=== PATIENT | female | born 1985 | race African-American/Black ===

== ENCOUNTER 2018-06-29 12:56 | Emergency (ER) | payer MEDICAID, OTHER ==
[~2018-06-29] VITALS: Ht 170.2 cm; Wt 100.0 kg
[2018-06-29 13:15] VITALS: BP 145/86
== END 2018-06-29 13:53 | disposition home or self-care (01) ==
LOC: ER 13:44
DX: K02.9 Dental caries, unspecified (principal); F17.200 Nicotine dependence, unspecified, uncomplicated
CPT/HCPCS: 99283

== ENCOUNTER 2020-06-22 11:29 | Inpatient (IN) | payer MEDICAID ==
[~2020-06-22] VITALS: Ht 170.2 cm; Wt 101.2 kg
[2020-06-22] MEDS ORDERED: SODIUM CHLORIDE 0.9% 1,000 ML IV ONE (11:58)
[2020-06-22 12:31] LABS: BASOPHILS % 0.8 % (0.0-2.0); EOSINOPHILS % 0.3 % (0.0-5.0); HEMATOCRIT. 32.8 % (36.0-48.0); HEMOGLOBIN. 10.1 g/dL (12.0-16.0); LYMPHOCYTES % 18.8 % (20.0-50.0); MEAN CORPUSCULAR HEMOGLOBIN 20.6 pg (28.0-32.0); MEAN CORPUSCULAR VOLUME 67.1 fL (81.0-99.0); MEAN PLATELET VOLUME 8.6 fl (7.4-10.4); MONOCYTES % 6.7 % (2.0-8.0); NEUTROPHILS % 73.4 % (40.0-76.0); PLATELET 250 x1000/uL (130-400); RED BLOOD CELL COUNT 4.89 mill/uL (4.2-5.4); RED CELL DISTRIBUTION WIDTH 20.6 % (11.6-14.6)
[2020-06-22 12:36] LABS: CHLORIDE 102 mEq/L (98-107)
[2020-06-22 12:40] LABS: ETHANOL BLOOD < 10 mg/dL
[2020-06-22] MEDS ORDERED: MORPHINE SULFATE 4 MG/ML CPJ (NOT FOR IM USE) IV STA (12:41)
[2020-06-22] MEDS ORDERED: FAMOTIDINE 20MG/2ML VIAL IV STA (12:41)
[2020-06-22] MEDS ORDERED: LORAZEPAM 2MG/ML CPJ IV ONE (12:45)
[2020-06-22 12:53] LABS: PROTHROMBIN TIME 10.8 sec (9.6-11.0)
[2020-06-22 12:55] LABS: CLARITY URINE TURBID (CLEAR); COLOR URINE ORANGE (YELLOW); KETONES URINE 1+ (NEGATIVE); LEUKOCYTE ESTERASE URINE 1+ (NEGATIVE); NITRITE URINE NEGATIVE (NEGATIVE); OCCULT BLOOD URINE NEGATIVE (NEGATIVE); PROTEIN URINE 2+ (NEGATIVE); SPECIFIC GRAVITY URINE 1.029 (1.005-1.030)
[2020-06-22 13:03] LABS: HCG SCREEN NEGATIVE
[2020-06-22 13:04] LABS: PLATELET ESTIMATE NORMAL
[2020-06-22 13:25] LABS: *AMPHETAMINES SCREEN URINE NEGATIVE (NEGATIVE); *BARBITURATES SCREEN URINE NEGATIVE (NEGATIVE); *BENZODIAZEPINES SCREEN URINE NEGATIVE (NEGATIVE); *COCAINE SCREEN URINE NEGATIVE (NEGATIVE); METHADONE URINE SCREEN NEGATIVE (NEGATIVE)
[2020-06-22 13:26] LABS: PHENCYCLIDINE URINE SCREEN NEGATIVE (NEGATIVE)
[2020-06-22 13:27] LABS: CANNABINOID URINE SCREEN PRESUMTIVE POSITIVE (NEGATIVE); OPIATES URINE SCREEN PRESUMTIVE POSITIVE (NEGATIVE)
[2020-06-22] MEDS ORDERED: CEFTRIAXONE 1 G PREMIX 50 ML IV ONE (13:45)
[2020-06-22 16:21] VITALS: BP 145/99
[2020-06-22] MEDS ORDERED: MAGNESIUM/ALUMINUM HYDROXIDE/SIMETHICONE 30ML UDC PO PRN (18:00)
[2020-06-22] MEDS ORDERED: NA PHOS,M-B/NA PHOS,DI-BA ENEMA 118ML PR PRN (18:00)
[2020-06-22] MEDS ORDERED: DOCUSATE SODIUM 100MG CAPSULE PO PRN (18:00)
[2020-06-22] MEDS ORDERED: ACETAMINOPHEN 325MG TABLET PO PRN (18:00)
[2020-06-22] MEDS ORDERED: CLONIDINE 0.1MG TABLET PO PRN (18:00)
[2020-06-22] MEDS ORDERED: DIPHENHYDRAMINE 50MG/ML VIAL IV PRN (18:00)
[2020-06-22] MEDS ORDERED: IPRATROPIUM/ALBUTEROL 0.5-3(2.5)MG/3ML NEB HHN PRN (18:00)
[2020-06-22] MEDS ORDERED: GUAIFENESIN 200MG/10ML SUGAR FREE UDC PO PRN (18:00)
[2020-06-22] MEDS ORDERED: LORAZEPAM 2MG/ML CPJ IV PRN (18:00)
[2020-06-22 20:00] VITALS: BP 137/85
[2020-06-22] MEDS: HYDROCODONE/ACETAMINOPHEN 10/325MG TABLET PO PRN (20:24)
[2020-06-22] MEDS: PANTOPRAZOLE SODIUM 40 MG/VIAL IV SCH (20:27)
[2020-06-22] MEDS: ONDANSETRON HCL 4MG/2ML INJ IV PRN (20:38)
[2020-06-22] MEDS: SODIUM CHLORIDE 0.45% 1,000 ML IV SCH (20:58)
[2020-06-22] MEDS ORDERED: ENOXAPARIN 40MG/0.4ML SYR SUBCUT SCH (21:00)
[2020-06-22] MEDS: SODIUM CHLORIDE 0.9% INJ 3ML FLUSH IVF SCH (21:18)
[2020-06-23] VITALS: BP 141/85
[2020-06-23] MEDS: HYDROCODONE/ACETAMINOPHEN 10/325MG TABLET PO PRN ×2 (03:52→08:35)
[2020-06-23] MEDS: ONDANSETRON HCL 4MG/2ML INJ IV PRN (03:52)
[2020-06-23] MEDS: SODIUM CHLORIDE 0.45% 1,000 ML IV SCH ×2 (03:58→08:44)
[2020-06-23 04:00] VITALS: BP 114/69
[2020-06-23] MEDS: SODIUM CHLORIDE 0.9% INJ 3ML FLUSH IVF SCH ×2 (05:36→13:05)
[2020-06-23 08:00] VITALS: BP 130/83
[2020-06-23] MEDS: PANTOPRAZOLE SODIUM 40 MG/VIAL IV SCH (08:34)
[2020-06-23] MEDS ORDERED: CEFTRIAXONE 1,000 MG in DEXTROSE 5% WATER 50 ML IV SCH (09:00)
[2020-06-23 12:00] VITALS: BP 107/63
[2020-06-23 13:56] VITALS: BP 107/63
== END 2020-06-23 14:19 | disposition home or self-care (01) | DRG 282 ==
LOC: ER 11:29 → 6EST 13:47 → ENRESERV 15:31 → ER 15:49
PROVIDERS: ADMIT Internal Medicine; ATTEND Internal Medicine
DX: K85.90 Acute pancreatitis without necrosis or infection, unspecified (principal); K42.9 Umbilical hernia without obstruction or gangrene; D64.9 Anemia, unspecified; E66.9 Obesity, unspecified; F12.90 Cannabis use, unspecified, uncomplicated; N39.0 Urinary tract infection, site not specified; R65.10 Systemic inflammatory response syndrome (SIRS) of non-infectious origin without acute organ dysfunction; Z68.34 Body mass index [BMI] 34.0-34.9, adult; Z79.899 Other long term (current) drug therapy
CPT/HCPCS: 36415; 71045; 74176; 80053; 80305; 80320; 81003; 84484; 84703; 85025; 93005; 99285; C9113; J0696; J1650; J2060; J2270; J2405; J3490; J7030; J7060; G0480

== ENCOUNTER 2020-09-22 11:14 | Emergency (ER) | payer MEDICAID ==
[~2020-09-22] VITALS: Ht 170.2 cm; Wt 102.0 kg
[2020-09-22] MEDS ORDERED: MORPHINE SULFATE 4 MG/ML CPJ (NOT FOR IM USE) IV STA (11:31)
[2020-09-22] MEDS ORDERED: ONDANSETRON HCL 4MG/2ML INJ IV STA (11:31)
[2020-09-22 12:31] LABS: BASOPHILS % 0.6 % (0.0-2.0); EOSINOPHILS % 0.8 % (0.0-5.0); HEMATOCRIT. 28.9 % (36.0-48.0); HEMOGLOBIN. 8.7 g/dL (12.0-16.0); LYMPHOCYTES % 13.7 % (20.0-50.0); MEAN CORPUSCULAR HEMOGLOBIN 20.5 pg (28.0-32.0); MEAN CORPUSCULAR VOLUME 68.2 fL (81.0-99.0); MEAN PLATELET VOLUME 8.6 fl (7.4-10.4); MONOCYTES % 5.3 % (2.0-8.0); NEUTROPHILS % 79.6 % (40.0-76.0); PLATELET 204 x1000/uL (130-400); RED BLOOD CELL COUNT 4.23 mill/uL (4.2-5.4); RED CELL DISTRIBUTION WIDTH 18.6 % (11.6-14.6)
[2020-09-22 12:36] LABS: CHLORIDE 106 mEq/L (98-107)
[2020-09-22 12:42] LABS: CLARITY URINE CLEAR (CLEAR); COLOR URINE YELLOW (YELLOW); KETONES URINE NEGATIVE (NEGATIVE); LEUKOCYTE ESTERASE URINE NEGATIVE (NEGATIVE); NITRITE URINE NEGATIVE (NEGATIVE); OCCULT BLOOD URINE NEGATIVE (NEGATIVE); PROTEIN URINE NEGATIVE (NEGATIVE); SPECIFIC GRAVITY URINE 1.023 (1.005-1.030); UROBILINOGEN URINE 0.2 E.U./dL (0.2-1.0)
[2020-09-22 13:00] LABS: HCG SCREEN NEGATIVE
[2020-09-22 13:03] LABS: PLATELET ESTIMATE NORMAL
[2020-09-22 14:06] VITALS: BP 122/78
== END 2020-09-22 14:06 | disposition home or self-care (01) ==
LOC: ER 11:14
DX: R10.13 Epigastric pain (principal)
CPT/HCPCS: 36415; 76705; 80053; 81003; 81025; 83690; 84703; 85025; 93005; 96374; 96375; 99285; J2270; J2405; Z7610

== ENCOUNTER 2020-09-25 13:08 | Emergency (ER) | payer MEDICAID ==
[~2020-09-25] VITALS: Ht 170.2 cm; Wt 145.0 kg
[2020-09-25] MEDS ORDERED: MAGNESIUM/ALUMINUM HYDROXIDE/SIMETHICONE 30ML UDC PO STA (15:13)
[2020-09-25] MEDS ORDERED: ONDANSETRON 4MG ODT PO STA (15:13)
[2020-09-25] MEDS ORDERED: VISCOUS LIDOCAINE 2% 15 ML UDC PO STA (15:13)
[2020-09-25] MEDS ORDERED: MORPHINE SULFATE 4 MG/ML CPJ (NOT FOR IM USE) IV ONE (15:45)
[2020-09-25 16:22] LABS: CHLORIDE 107 mEq/L (98-107)
[2020-09-25 16:25] LABS: BASOPHILS % 0.6 % (0.0-2.0); EOSINOPHILS % 1.2 % (0.0-5.0); HEMATOCRIT. 29.1 % (36.0-48.0); HEMOGLOBIN. 8.9 g/dL (12.0-16.0); LYMPHOCYTES % 21.6 % (20.0-50.0); MEAN CORPUSCULAR HEMOGLOBIN 20.9 pg (28.0-32.0); MEAN PLATELET VOLUME 8.4 fl (7.4-10.4); MONOCYTES % 7.8 % (2.0-8.0); NEUTROPHILS % 68.8 % (40.0-76.0); PLATELET 218 x1000/uL (130-400); RED BLOOD CELL COUNT 4.28 mill/uL (4.2-5.4); RED CELL DISTRIBUTION WIDTH 17.8 % (11.6-14.6)
[2020-09-25 16:28] LABS: PROTHROMBIN TIME 10.8 sec (9.6-11.0)
[2020-09-25 16:46] LABS: PLATELET ESTIMATE NORMAL
[2020-09-25] MEDS ORDERED: HALOPERIDOL LACTATE 5MG/ML VIAL IM ONE ×2 (17:45→20:30)
[2020-09-25 23:22] VITALS: BP 121/74
== END 2020-09-25 23:25 | disposition home or self-care (01) ==
LOC: ER 13:08
DX: F12.10 Cannabis abuse, uncomplicated (principal); R11.2 Nausea with vomiting, unspecified; D64.9 Anemia, unspecified; F17.200 Nicotine dependence, unspecified, uncomplicated
CPT/HCPCS: 36415; 76705; 80053; 81025; 83690; 85025; 85610; 93005; 96372; 99285; J1630; Q0162

== ENCOUNTER 2021-01-09 10:16 | Emergency (ER) | payer MEDICAID ==
[~2021-01-09] VITALS: Ht 170.2 cm; Wt 99.0 kg
[2021-01-09] MEDS ORDERED: ONDANSETRON HCL 4MG/2ML INJ IV STA (11:06)
[2021-01-09] MEDS ORDERED: KETOROLAC 30MG/ML VIAL IV STA (11:06)
[2021-01-09] MEDS ORDERED: SODIUM CHLORIDE 0.9% 1,000 ML IV ONE (11:15)
[2021-01-09 11:37] LABS: BASOPHILS % 0.6 % (0.0-2.0); EOSINOPHILS % 1.4 % (0.0-5.0); HEMOGLOBIN. 8.4 g/dL (12.0-16.0); LYMPHOCYTES % 16.9 % (20.0-50.0); MEAN CORPUSCULAR HEMOGLOBIN 19.9 pg (28.0-32.0); MEAN CORPUSCULAR VOLUME 66.7 fL (81.0-99.0); MEAN PLATELET VOLUME 8.7 fl (7.4-10.4); NEUTROPHILS % 73.1 % (40.0-76.0); PLATELET 226 x1000/uL (130-400); RED CELL DISTRIBUTION WIDTH 18.9 % (11.6-14.6)
[2021-01-09 11:40] LABS: CHLORIDE 108 mEq/L (98-107)
[2021-01-09 11:41] LABS: CLARITY URINE CLEAR (CLEAR); COLOR URINE YELLOW (YELLOW); KETONES URINE NEGATIVE (NEGATIVE); LEUKOCYTE ESTERASE URINE NEGATIVE (NEGATIVE); NITRITE URINE NEGATIVE (NEGATIVE); OCCULT BLOOD URINE 3+ (NEGATIVE); PROTEIN URINE NEGATIVE (NEGATIVE); SPECIFIC GRAVITY URINE 1.008 (1.005-1.030); UROBILINOGEN URINE 0.2 E.U./dL (0.2-1.0)
[2021-01-09 11:44] LABS: ETHANOL BLOOD < 10 mg/dL
[2021-01-09 11:45] LABS: HCG SCREEN NEGATIVE
[2021-01-09 12:13] LABS: *AMPHETAMINES SCREEN URINE NEGATIVE (NEGATIVE); *BARBITURATES SCREEN URINE NEGATIVE (NEGATIVE); *BENZODIAZEPINES SCREEN URINE NEGATIVE (NEGATIVE); *COCAINE SCREEN URINE NEGATIVE (NEGATIVE); METHADONE URINE SCREEN NEGATIVE (NEGATIVE)
[2021-01-09 12:14] LABS: OPIATES URINE SCREEN NEGATIVE (NEGATIVE); PHENCYCLIDINE URINE SCREEN NEGATIVE (NEGATIVE)
[2021-01-09 12:24] LABS: CANNABINOID URINE SCREEN PRESUMTIVE POSITIVE (NEGATIVE)
[2021-01-09 12:33] LABS: PLATELET ESTIMATE NORMAL
[2021-01-09] MEDS ORDERED: MORPHINE SULFATE 4 MG/ML CPJ (NOT FOR IM USE) IV ONE (13:30)
[2021-01-09] MEDS ORDERED: ONDA4TAB5 MT (13:35)
[2021-01-09] MEDS ORDERED: OMEP40CA12 MT (13:36)
[2021-01-09 13:50] VITALS: BP 145/76
== END 2021-01-09 13:50 | disposition home or self-care (01) ==
LOC: ER 10:16
DX: R10.33 Periumbilical pain (principal); D53.9 Nutritional anemia, unspecified; R11.2 Nausea with vomiting, unspecified; R03.0 Elevated blood-pressure reading, without diagnosis of hypertension
CPT/HCPCS: 36415; 74176; 80053; 80305; 80320; 81003; 83690; 84703; 85025; 93005; 96374; 96375; 99285; J1885; J2405; J7030; Z7610; G0480

== ENCOUNTER 2021-03-03 15:26 | Inpatient (IN) | payer MEDICAID ==
[~2021-03-03] VITALS: Ht 170.2 cm; Wt 99.8 kg
[~2021-03-03 15:26] MED LIST: OMEP40CA12 MT; ONDA4TAB5 MT
[2021-03-03 16:12] LABS: BASOPHILS % 0.4 % (0.0-2.0); EOSINOPHILS % 0.2 % (0.0-5.0); HEMATOCRIT. 31.7 % (36.0-48.0); HEMOGLOBIN. 9.9 g/dL (12.0-16.0); LYMPHOCYTES % 16.1 % (20.0-50.0); MEAN CORPUSCULAR HEMOGLOBIN 20.3 pg (28.0-32.0); MEAN PLATELET VOLUME 8.4 fl (7.4-10.4); MONOCYTES % 4.7 % (2.0-8.0); NEUTROPHILS % 78.6 % (40.0-76.0); PLATELET 278 x1000/uL (130-400); RED BLOOD CELL COUNT 4.87 mill/uL (4.2-5.4); RED CELL DISTRIBUTION WIDTH 19.3 % (11.6-14.6)
[2021-03-03 16:19] LABS: CHLORIDE 103 mEq/L (98-107)
[2021-03-03 16:21] LABS: CLARITY URINE TURBID (CLEAR); COLOR URINE DARK YELLOW (YELLOW); KETONES URINE 2+ (NEGATIVE); LEUKOCYTE ESTERASE URINE 1+ (NEGATIVE); NITRITE URINE NEGATIVE (NEGATIVE); OCCULT BLOOD URINE 1+ (NEGATIVE); PH URINE 6.5 (4.5-8.0); PROTEIN URINE 3+ (NEGATIVE); SPECIFIC GRAVITY URINE 1.029 (1.005-1.030)
[2021-03-03 16:23] LABS: ETHANOL BLOOD < 10 mg/dL
[2021-03-03 16:45] LABS: *AMPHETAMINES SCREEN URINE NEGATIVE (NEGATIVE); *BARBITURATES SCREEN URINE NEGATIVE (NEGATIVE); *BENZODIAZEPINES SCREEN URINE NEGATIVE (NEGATIVE); *COCAINE SCREEN URINE NEGATIVE (NEGATIVE); METHADONE URINE SCREEN NEGATIVE (NEGATIVE)
[2021-03-03] MEDS ORDERED: HALOPERIDOL LACTATE 5MG/ML VIAL IM NR (16:45)
[2021-03-03 16:46] LABS: PHENCYCLIDINE URINE SCREEN NEGATIVE (NEGATIVE)
[2021-03-03 17:00] LABS: CANNABINOID URINE SCREEN PRESUMTIVE POSITIVE (NEGATIVE); OPIATES URINE SCREEN PRESUMTIVE POSITIVE (NEGATIVE)
[2021-03-03 17:00] LABS: HCG SCREEN NEGATIVE
[2021-03-03] MEDS ORDERED: HALOPERIDOL LACTATE 5MG/ML VIAL IM ONE (17:45)
[2021-03-03] MEDS ORDERED: LORAZEPAM 2MG/ML CPJ IV ONE (17:45)
[2021-03-03 17:55] LABS: PLATELET ESTIMATE NORMAL
[2021-03-03] MEDS ORDERED: DEXT 5% WATER + KCL 20MEQ/L 1,000 ML IV ONE (21:00)
[2021-03-04] MEDS ORDERED: MORPHINE SULFATE 2 MG/ML CPJ (NOT FOR IM USE) IV PRN ×2 (02:00→14:45)
[2021-03-04] MEDS ORDERED: ONDANSETRON HCL 4MG/2ML INJ IV PRN (02:00)
[2021-03-04] MEDS ORDERED: LORAZEPAM 2MG/ML CPJ IV PRN (02:00)
[2021-03-04 03:02] VITALS: BP 150/93
[2021-03-04 04:00] VITALS: BP 131/87
[2021-03-04 08:00] VITALS: BP 127/96
[2021-03-04] MEDS: PANTOPRAZOLE SODIUM 40 MG/VIAL IV SCH (08:58)
[2021-03-04 12:00] VITALS: BP 135/85
[2021-03-04] MEDS ORDERED: ENOXAPARIN 30MG/0.3ML SYR SUBCUT SCH (14:45)
[2021-03-04] MEDS ORDERED: DOCUSATE SODIUM 100MG CAPSULE PO PRN (14:45)
[2021-03-04] MEDS ORDERED: HYDROCODONE/ACETAMINOPHEN 5/325MG TABLET PO PRN (14:45)
[2021-03-04] MEDS ORDERED: DIPHENHYDRAMINE 50MG/ML VIAL IV PRN (14:45)
[2021-03-04] MEDS ORDERED: ACETAMINOPHEN 325MG TABLET PO PRN (14:45)
[2021-03-04] MEDS ORDERED: CEFTRIAXONE 1 G PREMIX 50 ML IV SCH (14:45)
[2021-03-04] MEDS: SODIUM CHLORIDE 0.9% 1,000 ML IV SCH (15:35)
[2021-03-04 16:00] VITALS: BP 136/83
[2021-03-04] MEDS ORDERED: CEFTRIAXONE 1,000 MG in DEXTROSE 5% WATER 50 ML IV SCH (16:00)
[2021-03-04 20:00] VITALS: BP 125/82
[2021-03-04] MEDS ORDERED: POTASSIUM CHLORIDE 20MEQ TABLET SR PO NR (20:45)
[2021-03-04 21:21] LABS: CLARITY URINE CLOUDY (CLEAR); COLOR URINE DARK YELLOW (YELLOW); KETONES URINE TRACE (NEGATIVE); LEUKOCYTE ESTERASE URINE TRACE (NEGATIVE); NITRITE URINE NEGATIVE (NEGATIVE); OCCULT BLOOD URINE 3+ (NEGATIVE); PH URINE 5.5 (4.5-8.0); PROTEIN URINE 1+ (NEGATIVE); SPECIFIC GRAVITY URINE 1.026 (1.005-1.030)
[2021-03-05] VITALS: BP 106/61
[2021-03-05 04:00] VITALS: BP 126/58
[2021-03-05] MEDS: SODIUM CHLORIDE 0.9% 1,000 ML IV SCH (04:40)
[2021-03-05] MEDS ORDERED: ENOXAPARIN 30MG/0.3ML SYR SUBCUT SCH (09:00)
[2021-03-05] MEDS: PANTOPRAZOLE SODIUM 40 MG/VIAL IV SCH (09:05)
[2021-03-05] MEDS ORDERED: SULF-292 MT (10:05)
[2021-03-05 12:12] VITALS: BP 114/70
== END 2021-03-05 12:29 | disposition home or self-care (01) | DRG 463 ==
LOC: ER 15:36 → EDBEDREQSVC 21:06 → EDBEDREQTM 21:06 → EDBEDREQ 21:06 → ENRESERV 23:48 → 6EST 03-04 00:36
PROVIDERS: ADMIT Internal Medicine; ATTEND Internal Medicine
DX: N39.0 Urinary tract infection, site not specified (principal); E87.2 Acidosis; E87.6 Hypokalemia; D64.9 Anemia, unspecified
CPT/HCPCS: 36415; 71045; 80048; 80076; 80305; 80320; 81003; 83605; 84484; 84703; 85025; 85379; 99285; C9113; J0696; J1630; J1650; J2060; J2270; J7030; J7060; G0480

== ENCOUNTER 2021-04-14 12:11 | Emergency (ER) | payer MEDICAID ==
[~2021-04-14] VITALS: Ht 170.2 cm; Wt 105.0 kg
[~2021-04-14 12:11] MED LIST changes: +SULF-292 MT
[2021-04-14] MEDS ORDERED: ONDANSETRON HCL 4MG/2ML INJ IV STA (12:20)
[2021-04-14] MEDS ORDERED: ACETAMINOPHEN 325MG TABLET PO STA (12:20)
[2021-04-14] MEDS ORDERED: SODIUM CHLORIDE 0.9% 1,000 ML IV ONE (12:30)
[2021-04-14] MEDS ORDERED: MORPHINE SULFATE 4 MG/ML CPJ (NOT FOR IM USE) IV ONE (12:45)
[2021-04-14] MEDS ORDERED: LORAZEPAM 2MG/ML CPJ IV ONE (13:00)
[2021-04-14 13:20] LABS: BASOPHILS % 0.7 % (0.0-2.0); EOSINOPHILS % 0.2 % (0.0-5.0); HEMATOCRIT. 30.9 % (36.0-48.0); HEMOGLOBIN. 9.3 g/dL (12.0-16.0); LYMPHOCYTES % 14.2 % (20.0-50.0); MEAN CORPUSCULAR HEMOGLOBIN 19.5 pg (28.0-32.0); MEAN CORPUSCULAR VOLUME 65.1 fL (81.0-99.0); MEAN PLATELET VOLUME 8.5 fl (7.4-10.4); MONOCYTES % 7.3 % (2.0-8.0); NEUTROPHILS % 77.6 % (40.0-76.0); PLATELET 256 x1000/uL (130-400); RED BLOOD CELL COUNT 4.75 mill/uL (4.2-5.4); RED CELL DISTRIBUTION WIDTH 17.6 % (11.6-14.6)
[2021-04-14 13:27] LABS: CHLORIDE 102 mEq/L (98-107)
[2021-04-14 13:31] LABS: PROTHROMBIN TIME 11.2 sec (9.6-11.0)
[2021-04-14 14:02] LABS: HCG SCREEN NEGATIVE
[2021-04-14 14:28] LABS: PLATELET ESTIMATE NORMAL
[2021-04-14 15:24] LABS: CLARITY URINE CLOUDY (CLEAR); COLOR URINE DARK YELLOW (YELLOW); KETONES URINE 2+ (NEGATIVE); LEUKOCYTE ESTERASE URINE TRACE (NEGATIVE); NITRITE URINE NEGATIVE (NEGATIVE); OCCULT BLOOD URINE NEGATIVE (NEGATIVE); PROTEIN URINE 1+ (NEGATIVE); SPECIFIC GRAVITY URINE 1.033 (1.005-1.030)
[2021-04-14] MEDS ORDERED: MORPHINE SULFATE 4 MG/ML CPJ (NOT FOR IM USE) IV NR (17:00)
[2021-04-14] MEDS ORDERED: NITROFURANTOIN 100MG M/M CAPSULE PO ONE (17:15)
[2021-04-14] MEDS ORDERED: IOHEXOL-300 100 ML BOTTLE ONE (18:36)
[2021-04-14 21:40] VITALS: BP 132/81
== END 2021-04-14 22:05 | disposition short-term general hospital (02) ==
LOC: ER 12:11
DX: R10.13 Epigastric pain (principal); R11.2 Nausea with vomiting, unspecified; F17.290 Nicotine dependence, other tobacco product, uncomplicated; F12.10 Cannabis abuse, uncomplicated; Z79.899 Other long term (current) drug therapy
CPT/HCPCS: 36415; 74177; 80053; 81003; 81025; 83605; 83690; 84703; 85025; 85610; 96374; 96375; 99285; J2060; J2270; J2405; J7030; Q9967

== ENCOUNTER 2021-08-31 18:26 | Inpatient (IN) | payer MEDICAID ==
[~2021-08-31] VITALS: Ht 170.2 cm; Wt 96.2 kg
[~2021-08-31 18:26] MED LIST changes: -OMEP40CA12 MT; +OMEP40CA20 MT
[2021-08-31] MEDS ORDERED: ONDANSETRON HCL 4MG/2ML INJ IV STA (20:23)
[2021-08-31] MEDS ORDERED: SODIUM CHLORIDE 0.9% 1,000 ML IV ONE (20:30)
[2021-08-31] MEDS ORDERED: KETOROLAC 30MG/ML VIAL IV ONE (20:30)
[2021-08-31 21:33] LABS: BASOPHILS % 0.5 % (0.0-2.0); CLARITY URINE CLOUDY (CLEAR); COLOR URINE YELLOW (YELLOW); HEMATOCRIT. 29.4 % (36.0-48.0); HEMOGLOBIN. 8.8 g/dL (12.0-16.0); KETONES URINE TRACE (NEGATIVE); LEUKOCYTE ESTERASE URINE TRACE (NEGATIVE); LYMPHOCYTES % 9.1 % (20.0-50.0); MEAN CORPUSCULAR HEMOGLOBIN 19.7 pg (28.0-32.0); MEAN CORPUSCULAR VOLUME 65.9 fL (81.0-99.0); MEAN PLATELET VOLUME 8.4 fl (7.4-10.4); MONOCYTES % 2.3 % (2.0-8.0); NEUTROPHILS % 88.1 % (40.0-76.0); NITRITE URINE NEGATIVE (NEGATIVE); OCCULT BLOOD URINE 3+ (NEGATIVE); PH URINE 8.5 (4.5-8.0); PLATELET 282 x1000/uL (130-400); PROTEIN URINE 1+ (NEGATIVE); RED BLOOD CELL COUNT 4.45 mill/uL (4.2-5.4); RED CELL DISTRIBUTION WIDTH 18.2 % (11.6-14.6); SPECIFIC GRAVITY URINE 1.021 (1.005-1.030)
[2021-08-31 21:37] LABS: CHLORIDE 104 mEq/L (98-107)
[2021-08-31 21:50] LABS: HCG SCREEN NEGATIVE
[2021-08-31] MEDS ORDERED: ONDANSETRON HCL 4MG/2ML INJ IV NR (22:00)
[2021-08-31] MEDS: MORPHINE SULFATE 2 MG/ML CPJ (NOT FOR IM USE) IV NR (22:00)
[2021-08-31 22:25] LABS: PLATELET ESTIMATE NORMAL
[2021-08-31] MEDS ORDERED: FAMOTIDINE 20MG/2ML VIAL IV ONE (23:45)
[2021-09-01] MEDS ORDERED: DIPHENHYDRAMINE 50MG/ML VIAL IV ONE (00:15)
[2021-09-01] MEDS ORDERED: METOCLOPRAMIDE HCL 10MG/2ML VIAL IV ONE (00:15)
[2021-09-01] MEDS: MORPHINE SULFATE 2 MG/ML CPJ (NOT FOR IM USE) IV NR (04:35)
[2021-09-01] MEDS: ONDANSETRON HCL 4MG/2ML INJ IV PRN ×4 (06:53→17:44)
[2021-09-01] MEDS: MORPHINE SULFATE 2 MG/ML CPJ (NOT FOR IM USE) IV PRN ×2 (09:10→21:40)
[2021-09-01 21:30] VITALS: BP 148/102
[2021-09-01] MEDS ORDERED: NALOXONE HCL 0.4 MG/ML 1ML VIAL IV PRN (22:30)
[2021-09-02] VITALS: BP 153/96
[2021-09-02] MEDS: MORPHINE SULFATE 2 MG/ML CPJ (NOT FOR IM USE) IV PRN (06:56)
[2021-09-02 07:01] VITALS: BP 155/103
[2021-09-02 07:09] LABS: BASOPHILS % 0.5 % (0.0-2.0); EOSINOPHILS % 0.4 % (0.0-5.0); HEMATOCRIT. 29.7 % (36.0-48.0); LYMPHOCYTES % 15.9 % (20.0-50.0); MEAN CORPUSCULAR HEMOGLOBIN 19.8 pg (28.0-32.0); MEAN PLATELET VOLUME 8.3 fl (7.4-10.4); MONOCYTES % 6.4 % (2.0-8.0); NEUTROPHILS % 76.8 % (40.0-76.0); PLATELET 252 x1000/uL (130-400); RED BLOOD CELL COUNT 4.56 mill/uL (4.2-5.4); RED CELL DISTRIBUTION WIDTH 18.3 % (11.6-14.6)
[2021-09-02 07:20] LABS: CHLORIDE 103 mEq/L (98-107)
[2021-09-02] MEDS: METOPROLOL TARTRATE 50MG TABLET PO SCH ×2 (09:00→21:00)
[2021-09-02] MEDS: FAMOTIDINE 20MG/2ML VIAL IV SCH ×2 (09:00→17:13)
[2021-09-02] MEDS: HYDROCODONE/ACETAMINOPHEN 10/325MG TABLET PO PRN ×2 (11:44→17:14)
[2021-09-02 12:00] VITALS: BP 150/97
[2021-09-02 16:00] VITALS: BP 129/79
[2021-09-02 20:29] VITALS: BP 121/66
[2021-09-03] VITALS: BP 124/81
[2021-09-03 08:00] VITALS: BP 106/80
[2021-09-03] MEDS ORDERED: CEFTRIAXONE 1 G PREMIX 50 ML IV SCH (08:00)
[2021-09-03] MEDS ORDERED: CEFTRIAXONE 1,000 MG in DEXTROSE 5% WATER 50 ML IV SCH (09:00)
[2021-09-03] MEDS: METOPROLOL TARTRATE 50MG TABLET PO SCH (09:00)
[2021-09-03] MEDS: FAMOTIDINE 20MG/2ML VIAL IV SCH (09:10)
[2021-09-03] MEDS: HYDROCODONE/ACETAMINOPHEN 10/325MG TABLET PO PRN (09:22)
[2021-09-03 09:45] LABS: *AMPHETAMINES SCREEN URINE NEGATIVE (NEGATIVE); *BARBITURATES SCREEN URINE NEGATIVE (NEGATIVE)
[2021-09-03 09:46] LABS: *BENZODIAZEPINES SCREEN URINE NEGATIVE (NEGATIVE); *COCAINE SCREEN URINE NEGATIVE (NEGATIVE); METHADONE URINE SCREEN NEGATIVE (NEGATIVE); PHENCYCLIDINE URINE SCREEN NEGATIVE (NEGATIVE)
[2021-09-03 09:51] LABS: CANNABINOID URINE SCREEN PRESUMTIVE POSITIVE (NEGATIVE); OPIATES URINE SCREEN PRESUMTIVE POSITIVE (NEGATIVE)
[2021-09-03 12:00] VITALS: BP 105/64
[2021-09-03 12:27] VITALS: BP 106/80
== END 2021-09-03 12:44 | disposition home or self-care (01) | DRG 241 ==
LOC: ER 18:26 → 6EST 09-01 01:16 → ENRESERV 09-01 19:07 → 6EST 09-01 22:12
PROVIDERS: ADMIT Internal Medicine; ATTEND Internal Medicine
DX: K29.70 Gastritis, unspecified, without bleeding (principal); E88.09 Other disorders of plasma-protein metabolism, not elsewhere classified; D50.9 Iron deficiency anemia, unspecified; F12.90 Cannabis use, unspecified, uncomplicated; F17.210 Nicotine dependence, cigarettes, uncomplicated; I10 Essential (primary) hypertension; K21.9 Gastro-esophageal reflux disease without esophagitis; K52.9 Noninfective gastroenteritis and colitis, unspecified; K27.9 Peptic ulcer, site unspecified, unspecified as acute or chronic, without hemorrhage or perforation; Z79.899 Other long term (current) drug therapy; Z71.6 Tobacco abuse counseling; N39.0 Urinary tract infection, site not specified
CPT/HCPCS: 36415; 74176; 76700; 80048; 80053; 80305; 81003; 84703; 85025; 96361; 96374; 96375; 96376; 99285; 99406; J0696; J1200; J1885; J2270; J2405; J2765; J3490; J7030; J7060

== ENCOUNTER 2022-01-21 11:39 | Emergency (ER) | payer MEDICAID ==
[~2022-01-21] VITALS: Ht 170.2 cm; Wt 109.0 kg
[2022-01-21] MEDS ORDERED: MORPHINE SULFATE 4 MG/ML CPJ (NOT FOR IM USE) IV STA (11:54)
[2022-01-21] MEDS ORDERED: ONDANSETRON HCL 4MG/2ML INJ IV STA (11:54)
[2022-01-21] MEDS ORDERED: SODIUM CHLORIDE 0.9% 1,000 ML IV ONE (12:00)
[2022-01-21 12:21] LABS: BASOPHILS % 0.3 % (0.0-2.0); EOSINOPHILS % 0.2 % (0.0-5.0); HEMATOCRIT. 29.7 % (36.0-48.0); HEMOGLOBIN. 9.2 g/dL (12.0-16.0); LYMPHOCYTES % 10.5 % (20.0-50.0); MEAN CORPUSCULAR HEMOGLOBIN 19.7 pg (28.0-32.0); MEAN PLATELET VOLUME 8.6 fl (7.4-10.4); MONOCYTES % 3.9 % (2.0-8.0); NEUTROPHILS % 85.1 % (40.0-76.0); PLATELET 227 x1000/uL (130-400); RED BLOOD CELL COUNT 4.64 mill/uL (4.2-5.4); RED CELL DISTRIBUTION WIDTH 18.6 % (11.6-14.6)
[2022-01-21 12:28] LABS: CHLORIDE 107 mEq/L (98-107)
[2022-01-21 12:32] LABS: ETHANOL BLOOD < 10 mg/dL
[2022-01-21 12:37] LABS: CLARITY URINE CLEAR (CLEAR); COLOR URINE YELLOW (YELLOW); KETONES URINE NEGATIVE (NEGATIVE); LEUKOCYTE ESTERASE URINE TRACE (NEGATIVE); NITRITE URINE NEGATIVE (NEGATIVE); OCCULT BLOOD URINE NEGATIVE (NEGATIVE); PROTEIN URINE TRACE (NEGATIVE); SPECIFIC GRAVITY URINE 1.019 (1.005-1.030); UROBILINOGEN URINE 0.2 E.U./dL (0.2-1.0)
[2022-01-21 12:48] LABS: *AMPHETAMINES SCREEN URINE NEGATIVE (NEGATIVE); *BARBITURATES SCREEN URINE NEGATIVE (NEGATIVE)
[2022-01-21 12:49] LABS: *BENZODIAZEPINES SCREEN URINE NEGATIVE (NEGATIVE); *COCAINE SCREEN URINE NEGATIVE (NEGATIVE); METHADONE URINE SCREEN NEGATIVE (NEGATIVE)
[2022-01-21 12:53] LABS: OPIATES URINE SCREEN NEGATIVE (NEGATIVE)
[2022-01-21 12:57] LABS: PHENCYCLIDINE URINE SCREEN NEGATIVE (NEGATIVE)
[2022-01-21 12:58] LABS: PLATELET ESTIMATE NORMAL
[2022-01-21 13:00] LABS: CANNABINOID URINE SCREEN PRESUMTIVE POSITIVE (NEGATIVE)
[2022-01-21 13:17] LABS: HCG SCREEN NEGATIVE
[2022-01-21] MEDS ORDERED: ONDANSETRON HCL 4MG/2ML INJ IV ONE (15:30)
[2022-01-21] MEDS ORDERED: KETOROLAC 15MG/ML VIAL IV ONE (15:30)
[2022-01-21] MEDS ORDERED: IBUP-2028 MT (17:06)
[2022-01-21] MEDS ORDERED: ONDA4TAB11 PO (17:06)
[2022-01-21 18:15] VITALS: BP 136/74
== END 2022-01-21 18:17 | disposition home or self-care (01) ==
LOC: ER 11:39
DX: R10.13 Epigastric pain (principal); R11.2 Nausea with vomiting, unspecified; J45.909 Unspecified asthma, uncomplicated
CPT/HCPCS: 36415; 71045; 74176; 76705; 80053; 80305; 80320; 81003; 83690; 84703; 85025; 93005; 96361; 96374; 96375; 96376; 99285; J1885; J2270; J2405; J7030; G0480

== ENCOUNTER 2022-03-13 12:51 | Inpatient (IN) | payer MEDICAID ==
[~2022-03-13] VITALS: Ht 170.2 cm; Wt 94.8 kg
[~2022-03-13 12:51] MED LIST changes: +ATOR20TA65 MT; +MUPI15CR11 TP; +ONDA4TAB11 PO; -ONDA4TAB5 MT; -SULF-292 MT
[2022-03-13 13:18] LABS: BASOPHILS % 0.5 % (0.0-2.0); HEMATOCRIT. 28.6 % (36.0-48.0); HEMOGLOBIN. 8.7 g/dL (12.0-16.0); LYMPHOCYTES % 10.6 % (20.0-50.0); MEAN CORPUSCULAR HEMOGLOBIN 19.8 pg (28.0-32.0); MEAN CORPUSCULAR VOLUME 65.1 fL (81.0-99.0); MEAN PLATELET VOLUME 8.3 fl (7.4-10.4); MONOCYTES % 4.8 % (2.0-8.0); NEUTROPHILS % 84.1 % (40.0-76.0); PLATELET 261 x1000/uL (130-400); RED BLOOD CELL COUNT 4.39 mill/uL (4.2-5.4)
[2022-03-13 13:25] LABS: CHLORIDE 108 mEq/L (98-107)
[2022-03-13 13:29] LABS: HCG SCREEN NEGATIVE
[2022-03-13 14:01] LABS: PLATELET ESTIMATE NORMAL
[2022-03-13] MEDS ORDERED: PANTOPRAZOLE SODIUM 40 MG/VIAL IV STA (16:46)
[2022-03-13] MEDS ORDERED: MORPHINE SULFATE 4 MG/ML CPJ (NOT FOR IM USE) IV STA (16:46)
[2022-03-13] MEDS ORDERED: HALOPERIDOL LACTATE 5MG/ML VIAL IM ONE (17:00)
[2022-03-13] MEDS ORDERED: SODIUM CHLORIDE 0.9% 1,000 ML IV ONE (17:00)
[2022-03-13] MEDS ORDERED: DIPHENHYDRAMINE 50MG/ML VIAL IV ONE (19:00)
[2022-03-13] MEDS ORDERED: PROCHLORPERAZINE 10MG/2ML VIAL IV PRN (19:00)
[2022-03-14 02:04] LABS: CLARITY URINE CLEAR (CLEAR); COLOR URINE YELLOW (YELLOW); KETONES URINE 1+ (NEGATIVE); LEUKOCYTE ESTERASE URINE NEGATIVE (NEGATIVE); NITRITE URINE NEGATIVE (NEGATIVE); OCCULT BLOOD URINE NEGATIVE (NEGATIVE); PH URINE 6.5 (4.5-8.0); PROTEIN URINE 1+ (NEGATIVE); SPECIFIC GRAVITY URINE 1.024 (1.005-1.030); UROBILINOGEN URINE 0.2 E.U./dL (0.2-1.0)
[2022-03-14 10:20] VITALS: BP 156/79
[2022-03-14] MEDS ORDERED: ONDANSETRON HCL 4MG/2ML INJ IV PRN (10:45)
[2022-03-14] MEDS ORDERED: HYDROCODONE/ACETAMINOPHEN 5/325MG TABLET PO ONE (10:45)
[2022-03-14] MEDS ORDERED: ACETAMINOPHEN 650MG SUPP PR PRN (10:45)
[2022-03-14] MEDS: KETOROLAC 15MG/ML VIAL IV PRN ×3 (11:11→23:07)
[2022-03-14 12:00] VITALS: BP 156/99
[2022-03-14] MEDS: METOCLOPRAMIDE HCL 10MG/2ML VIAL IV SCH ×3 (12:11→23:05)
[2022-03-14] MEDS: DEXT 5%/0.45% NACL 1000ML 1,000 ML IV SCH ×2 (12:11→23:10)
[2022-03-14] MEDS ORDERED: CLONIDINE HCL 0.1MG/24HR PATCH TD SCH (13:00)
[2022-03-14 16:00] VITALS: BP 165/98
[2022-03-14 20:01] LABS: CHLORIDE 105 mEq/L (98-107)
[2022-03-14 23:59] VITALS: BP 148/88
[2022-03-15 04:00] VITALS: BP 128/66
[2022-03-15] MEDS: METOCLOPRAMIDE HCL 10MG/2ML VIAL IV SCH (05:27)
[2022-03-15] MEDS: KETOROLAC 15MG/ML VIAL IV PRN (07:01)
[2022-03-15 08:00] VITALS: BP 153/86
== END 2022-03-15 10:22 | disposition left against medical advice (07) | DRG 249 ==
LOC: ER 12:51 → 6EST 23:23 → ENRESERV 03-14 08:24
PROVIDERS: ADMIT Hospitalist; ATTEND Hospitalist
DX: R11.2 Nausea with vomiting, unspecified (principal); D63.8 Anemia in other chronic diseases classified elsewhere; R11.15 Cyclical vomiting syndrome unrelated to migraine; F10.10 Alcohol abuse, uncomplicated; F12.90 Cannabis use, unspecified, uncomplicated; I10 Essential (primary) hypertension; Z82.49 Family history of ischemic heart disease and other diseases of the circulatory system; Z86.19 Personal history of other infectious and parasitic diseases; Z53.29 Procedure and treatment not carried out because of patient's decision for other reasons
CPT/HCPCS: 36415; 71045; 80048; 80053; 81003; 84703; 85025; 93005; 99285; C9113; J0780; J1200; J1630; J1885; J2270; J2405; J2765; J7030

== ENCOUNTER 2022-05-25 20:03 | Emergency (ER) | payer MEDICAID ==
[~2022-05-25] VITALS: Ht 170.2 cm; Wt 82.0 kg
[2022-05-25 20:11] VITALS: BP 130/80
[2022-05-25] MEDS ORDERED: HALOPERIDOL LACTATE 5MG/ML VIAL IM ONE (21:15)
[2022-05-25] MEDS ORDERED: SODIUM CHLORIDE 0.9% 1,000 ML IV ONE (21:15)
[2022-05-25] MEDS ORDERED: ONDANSETRON HCL 4MG/2ML INJ IV ONE (21:15)
[2022-05-25] MEDS ORDERED: MORPHINE SULFATE 4 MG/ML CPJ (NOT FOR IM USE) IV ONE (23:00)
[2022-05-25 23:15] LABS: CHLORIDE 98 mEq/L (98-107)
[2022-05-25 23:22] LABS: BASOPHILS % 0.3 % (0.0-2.0); EOSINOPHILS % 0.1 % (0.0-5.0); HEMATOCRIT. 32.3 % (36.0-48.0); HEMOGLOBIN. 9.5 g/dL (12.0-16.0); LYMPHOCYTES % 13.3 % (20.0-50.0); MEAN CORPUSCULAR VOLUME 64.5 fL (81.0-99.0); MEAN PLATELET VOLUME 8.9 fl (7.4-10.4); NEUTROPHILS % 78.3 % (40.0-76.0); PLATELET 321 x1000/uL (130-400); RED CELL DISTRIBUTION WIDTH 18.8 % (11.6-14.6)
[2022-05-25 23:43] LABS: HCG SCREEN NEGATIVE
[2022-05-26 00:45] LABS: PLATELET ESTIMATE NORMAL
== END 2022-05-26 01:40 | disposition left against medical advice (07) ==
LOC: ER 20:03 → CANBEDREQ 05-26 05:49
DX: F12.988 Cannabis use, unspecified with other cannabis-induced disorder (principal); R10.84 Generalized abdominal pain; R11.2 Nausea with vomiting, unspecified; R51.9 Headache, unspecified; E87.6 Hypokalemia
CPT/HCPCS: 36415; 80053; 83690; 84703; 85025; 93005; 96361; 96372; 96374; 99284; J1630; J2405; J7030

== ENCOUNTER 2023-03-25 10:24 | Emergency (ER) | payer MEDICAID ==
[~2023-03-25] VITALS: Ht 170.2 cm; Wt 95.4 kg
[2023-03-25 10:55] LABS: BASOPHILS % 0.3 % (0.0-2.0); EOSINOPHILS % 0.1 % (0.0-5.0); HEMATOCRIT. 31.8 % (36.0-48.0); HEMOGLOBIN. 9.8 g/dL (12.0-16.0); LYMPHOCYTES % 11.1 % (20.0-50.0); MEAN CORPUSCULAR HEMOGLOBIN 19.9 pg (28.0-32.0); MEAN CORPUSCULAR VOLUME 64.8 fL (81.0-99.0); NEUTROPHILS % 83.5 % (40.0-76.0); PLATELET 334 x1000/uL (130-400); RED BLOOD CELL COUNT 4.92 mill/uL (4.2-5.4); RED CELL DISTRIBUTION WIDTH 18.6 % (11.6-14.6)
[2023-03-25 11:06] LABS: CHLORIDE 101 mEq/L (98-107)
[2023-03-25 11:42] LABS: PLATELET ESTIMATE NORMAL
[2023-03-25 12:27] LABS: CLARITY URINE TURBID (CLEAR); COLOR URINE DARK YELLOW (YELLOW); KETONES URINE 2+ (NEGATIVE); LEUKOCYTE ESTERASE URINE 1+ (NEGATIVE); NITRITE URINE NEGATIVE (NEGATIVE); OCCULT BLOOD URINE NEGATIVE (NEGATIVE); PROTEIN URINE 3+ (NEGATIVE); SPECIFIC GRAVITY URINE 1.033 (1.005-1.030)
[2023-03-25] MEDS ORDERED: MORPHINE SULFATE 4 MG/ML CPJ (NOT FOR IM USE) IV ONE (12:45)
[2023-03-25] MEDS ORDERED: FAMOTIDINE 20MG/2ML VIAL IV ONE (12:45)
[2023-03-25] MEDS ORDERED: SODIUM CHLORIDE 0.9% 1,000 ML IV ONE (12:45)
[2023-03-25] MEDS ORDERED: ONDANSETRON HCL 4MG/2ML INJ IV ONE (12:45)
[2023-03-25 15:21] LABS: HCG SCREEN NEGATIVE
[2023-03-25] MEDS ORDERED: MAG-55 MT (15:55)
[2023-03-25] MEDS ORDERED: NITR-87 MT (16:00)
[2023-03-25 17:02] VITALS: BP 138/65
[2023-03-26 10:51] LABS: *AMPHETAMINES SCREEN URINE NEGATIVE (NEGATIVE); *BARBITURATES SCREEN URINE NEGATIVE (NEGATIVE); *BENZODIAZEPINES SCREEN URINE NEGATIVE (NEGATIVE); *COCAINE SCREEN URINE NEGATIVE (NEGATIVE); METHADONE URINE SCREEN NEGATIVE (NEGATIVE); PHENCYCLIDINE URINE SCREEN NEGATIVE (NEGATIVE)
[2023-03-26 10:57] LABS: CANNABINOID URINE SCREEN PRESUMTIVE POSITIVE (NEGATIVE); OPIATES URINE SCREEN PRESUMTIVE POSITIVE (NEGATIVE)
== END 2023-03-25 17:04 | disposition home or self-care (01) ==
LOC: ER 10:24
DX: R10.84 Generalized abdominal pain (principal); R11.2 Nausea with vomiting, unspecified; D64.9 Anemia, unspecified; F12.10 Cannabis abuse, uncomplicated; Z79.899 Other long term (current) drug therapy
CPT/HCPCS: 36415; 76705; 80053; 80305; 81003; 81025; 83690; 84703; 85025; 93005; 96361; 96374; 96375; 99285; J2270; J2405; J3490; J7030

== ENCOUNTER 2024-02-07 07:40 | Emergency (ER) | payer MEDICAID ==
[~2024-02-07] VITALS: Ht 167.6 cm; Wt 114.0 kg
[~2024-02-07 07:40] MED LIST changes: +MAG-55 MT; +NITR-87 MT
[2024-02-07 07:45] VITALS: O2SAT 99
[2024-02-07 08:09] LABS: CLARITY URINE CLOUDY (CLEAR); COLOR URINE ORANGE (YELLOW); GLUCOSE URINE NEGATIVE (NEGATIVE); KETONES URINE NEGATIVE (NEGATIVE); LEUKOCYTE ESTERASE URINE TRACE (NEGATIVE); NITRITE URINE NEGATIVE (NEGATIVE); OCCULT BLOOD URINE 3+ (NEGATIVE); PH URINE 5.5 (4.5-8.0); PROTEIN URINE 1+ (NEGATIVE); SPECIFIC GRAVITY URINE 1.026 (1.005-1.030); UROBILINOGEN URINE 0.2 E.U./dL (0.2-1.0)
[2024-02-07 08:27] LABS: BASOPHILS % 0.5 % (0.0-2.0); DIFFERENTIAL COMMENT 0; EOSINOPHILS % 1.9 % (0.0-5.0); HEMATOCRIT. 33.8 % (36.0-48.0); HEMOGLOBIN. 9.7 g/dL (12.0-16.0); LYMPHOCYTES % 24.7 % (20.0-50.0); MEAN CORPUSCULAR HGB CONC 28.6 g/dL (31.0-37.0); MEAN CORPUSCULAR VOLUME 73.6 fL (81.0-99.0); MEAN PLATELET VOLUME 8.7 fl (7.4-10.4); MONOCYTES % 6.7 % (2.0-8.0); NEUTROPHILS % 66.2 % (40.0-76.0); PLATELET 67 x1000/uL (130-400); RED BLOOD CELL COUNT 4.59 mill/uL (4.2-5.4); RED CELL DISTRIBUTION WIDTH 17.9 % (11.6-14.6); WHITE BLOOD COUNT 9.3 x1000/uL (4.5-11.0)
[2024-02-07] MEDS ORDERED: KETOROLAC 30MG/ML VIAL IV ONE (08:30)
[2024-02-07] MEDS: SODIUM CHLORIDE 0.9% 1,000 ML IV ONE (08:30)
[2024-02-07 08:45] LABS: RBC URINE TNTC /hpf (0-2)
[2024-02-07 08:46] LABS: SQUAMOUS EPITHELIAL CELL URINE 1+ /lpf (RARE/1+)
[2024-02-07 08:47] LABS: ALANINE AMINOTRANSFERASE 11 IU/L (10-49); ALBUMIN 4.5 g/dL (3.2-4.8); ASPARTATE AMINOTRANSFERASE 24 IU/L (<34); BILIRUBIN TOTAL 0.3 mg/dL (0.1-1.0); CALCIUM 8.9 mg/dL (8.7-10.4); CARBON DIOXIDE 22 mEq/L (21-32); CHLORIDE 108 mEq/L (98-107); CREATININE 0.8 mg/dL (0.6-1.0); GLUCOSE 96 mg/dL (70-105); POTASSIUM 4.1 mEq/L (3.5-5.1); PROTEIN TOTAL 8.2 g/dL (6.0-8.3); SODIUM 135 mEq/L (136-145)
[2024-02-07 08:47] LABS: WBC URINE 0-2 /hpf (0-2)
[2024-02-07 08:48] LABS: BACTERIA URINE TRACE
[2024-02-07 09:03] LABS: UREA NITROGEN BLOOD < 5 mg/dL (9-23)
[2024-02-07 09:46] LABS: HCG SCREEN NEGATIVE
[2024-02-07 10:00] VITALS: BP 133/67; TEMP 97.3
[2024-02-07] MEDS: MEDROXYPROGESTERONE ACET 5MG TABLET PO STA (10:10)
[2024-02-07 10:15] VITALS: PULSE 76; RESP 16
[2024-02-07] MEDS: KETOROLAC 15MG/ML VIAL IM ONE (10:15)
[2024-02-07] MEDS ORDERED: MEDR10TA PO (10:33)
== END 2024-02-07 10:35 | disposition home or self-care (01) ==
LOC: ER 07:40
DX: N93.9 Abnormal uterine and vaginal bleeding, unspecified (principal); D64.9 Anemia, unspecified; F12.10 Cannabis abuse, uncomplicated; Z79.899 Other long term (current) drug therapy
CPT/HCPCS: 80053; 81003; 81025; 84703; 84702; 85025; 86850; 86900; 86901; 36415; 76830; 76856; 96372; 99285; J1885; J7030; Z7610 ×2